=== PATIENT | female | born 1970 | race Caucasian/White ===

== ENCOUNTER 2018-09-29 08:58 | Emergency (ER) | payer OTHER, MEDICAID ==
--- NOTE | 2018-09-29 09:36 | EDPHY ---
H & P Stated Complaint: Fall yesterday Time Seen by Provider: 09/29/18 09:15 HPI/ROS: CHIEF COMPLAINT: Slip on ice, multiple complaints, see HPI HISTORY OF PRESENT ILLNESS: 47-year-old homeless female took the bus and walked to the ER complaining of slipping on ice yesterday and impacting her left thumb, left elbow, left shoulder, left hip. She is complaining of pain to these areas Did not directly impact her neck or head but is complaining of midline C-spine pain without peripheral paresthesia, weakness, numbness. This was a mechanical incident with no syncope. She was able to get herself up and spent the [facility] REVIEW OF SYSTEMS: 10 systems reviewed and negative with the exception of the elements mentioned in the history of present illness PAST MEDICAL/SURGICAL HISTORY: no anticoagulant use, no relevant medical/ surgical history SOCIAL HISTORY: Homeless. PHYSICAL EXAM 1) GENERAL: Well-developed, well-nourished, alert and oriented. Appears to be in no acute distress. Answering questions appropriately. 2) HEAD: Normocephalic, atraumatic 3) HEENT: Pupils equal, round, reactive to light bilaterally. Negative Horners. Nasopharynx, oropharynx, clear. No deformity or angulation of nose. No septal hematoma. No rhinorrhea. No oral trauma. Ears bilaterally with normal tympanic membranes. No hemotympanum. No fluid or blood in the external auditory canal. No raccoon eyes. No Dubose sign. Teeth are normally aligned with no gross malocclusion, TMJ bilaterally nontender, facial bones nontender including the zygomatic arch, maxilla mandible. 4) NECK: No cervical collar is on. Patient is unable to completely differentiate between true midline pain versus just lateral of midline pain.Cervical collar is placed at that point. 5) LUNGS: Clear to auscultation bilaterally, no wheezes, no rhonchi, no retractions. No obvious signs of trauma. No chest wall pain. No flaring, no grunting. Moving symmetrically. No crepitus. 6) HEART: [Regular rate and rhythm, 7) ABDOMEN: No guarding, no rebound, no focal tenderness, no peritoneal signs, no signs of trauma, no ecchymosis 8) MUSCULOSKELETAL: Left upper extremity: No visible signs of trauma to the entirety of the left upper extremity. Soft compartments throughout. Brisk pulses and capillary refill distally. She has reproducible pain with palpation to the left shoulder. Reproducible pain with palpation to the left elbow. Reproducible pain with palpation to the left thumb. No anatomic snuffbox pain She has full range of motion at all these areas albeit with pain. There is no signs of trauma such as ecchymosis erythema or break in skin. Left lower extremity: Tender to palpation left greater trochanteric region with no signs of trauma. No crepitus. Soft compartments. No ecchymosis. The femur, knee the,tib-fib ankle and foot are nontender. DP PT pulses present and brisk. Normal color and temperature distally. Otherwise, Moving all extremities, no focal areas of tenderness, no obvious trauma. 9) BACK: No midline vertebral tenderness, no fluctuance, no step-off, no obvious trauma, no visual or palpable abnormality. 10) SKIN: No laceration. No abrasion 11) NEURO: Awake, alert, and oriented to person, place and time. Answers questions appropriately. There were no obvious focal neurologic abnormalities. No cerebellar dysfunction. Cranial nerves 2 through to 12 intact. Normal steady gait. Upper and lower extremities bilaterally with strength 5 / 5, reflexes 2+. 12) CERVICAL SPINE NEURO EXAM: Bilateral reflexes of biceps triceps brachioradialis intact equal bilaterally Motor exam: deltoid, biceps, wrist extension, tricep, finger extension, finger flexion, finger abduction intact equal bilaterally 5/5 DIFFERENTIAL DIAGNOSIS: In no particular order including but not limited to fracture, sprain, strain, dislocation - Personal History LMP (Females 10-55): Post Menopausal Current Tetanus/Diphtheria Vaccine: Yes - Medical/Surgical History Hx Asthma: No Hx Chronic Respiratory Disease: Yes Hx Diabetes: No Hx Cardiac Disease: Yes Hx Renal Disease: No Hx Cirrhosis: No Hx Alcoholism: No Hx HIV/AIDS: No Hx Splenectomy or Spleen Trauma: No Other PMH: multiples fx neck, and compressed vertebrae. broken hip, lungs nodules - Social History Smoking Status: Heavy smoker Constitutional: Initial Vital Signs Temperature (C) 36.3 C 09/29/18 09:02 Heart Rate 125 H 09/29/18 09:02 Respiratory Rate 22 H 09/29/18 09:02 Blood Pressure 181/147 H 09/29/18 09:02 O2 Sat (%) 94 09/29/18 09:02 O2 Delivery Mode Room Air Allergies/Adverse Reactions: No Known Allergies Allergy (Unverified 09/29/18 09:07) Home Medications: Medication Instructions Recorded Celexa 09/29/18 [place] Carbonate 09/29/18 Provigil 09/29/18 traZODone 09/29/18 Medical Decision Making - Diagnostics Imaging Results: Imaging Impressions Elbow X-Ray 09/29/18 09:21 Impression: Negative left elbow radiographs. Hand X-Ray 09/29/18 09:21 Impression: Negative left hand radiographs. Hip X-Ray 09/29/18 09:21 Impression: Negative radiographs of the left hip. Shoulder X-Ray 09/29/18 09:21 Impression: Negative left shoulder radiographs. Cervical Spine CT 09/29/18 09:22 Impression: 1. No acute posttraumatic abnormality identified. If there is persistent pain or neurologic deficit, consider MRI and/or flexion and extension views if clinically indicated. 2. Unfused left mandibular fracture post fixation. 3. Mild emphysema with scattered tiny groundglass opacities. Follow up CT is recommended in 3-6 months. 4. Additional findings as above. Findings discussed with Kem Zuñiga 09/29/2018 at 9:56. Pelvis CT 09/29/18 11:20 Impression: No acute osseous findings. Findings discussed with Kem Zuñiga 09/29/2018 at 12:03. Images reviewed myself Procedures: Procedure: Splint A left Velcro thumb spica splint was applied by ER biology specimen technician. After application of the splint I returned and re-examined the patient. The splint was adequately immobilizing the joint and distal to the splint the patient's circulation and sensation were intact. Patient shows no signs of compartment syndrome. Was given orthopedic precautions. Procedure: Splint An upper extremity sling was applied by ER biology specimen technician. After application of the splint I returned and re-examined the patient. The splint was adequately immobilizing the joint and distal to the splint the patient's circulation and sensation were intact. Patient shows no signs of compartment syndrome. Was given orthopedic precautions. ED Course/Re-evaluation: Patient was re-evaluated with serial examinations. I discussed her negative C- spine CT showing no posttraumatic sequelae. Cervical collar was removed by myself is able to perform full range of motion without eliciting midline pain or peripheral paresthesia, weakness, numbness. Discussed the imaging results with staff radiologist. I reviewed her other imaging studies showing no definitive fracture to the shoulder, elbow, hand or hip. Specifically, guarding her left thumb, she has no anatomic snuffbox pain however she has been informed that ulnar collateral ligament injury has not been ruled out and therefore recommended immobilization with a thumb spica and recommend follow up with Orthopedics. I have also informed her that occult radial head fracture is not ruled out and therefore recommended immobilization with sling and follow up with Orthopedics. 12:05 p.m.: I re-evaluated the patient at this time. I discussed with the patient the staff radiologist interpretation of her CT pelvis showing no fracture, specifically no fracture in the greater trochanteric region. I reviewed the images myself. The patient is upset to hear this, informs me that she has previously been told she had a fracture of this area in 2018 and expresses her displeasure about the negative imaging studies. I discussed limitations of imaging with her. She informs me that she has been discharged from Pain Management provider's office in [place]. Patient was given a single Percocet in the ER. She would not be given any narcotics at discharge. biofuels production manager has spoke with the patient as well. Have recommended orthopedic follow- up for her shoulder, elbow, hand complaints. - Data Points Medications Given: Discontinued Medications Ibuprofen (Motrin) 800 mg PO EDNOW ONE Stop: 09/29/18 10:23 Last Admin: 09/29/18 10:27 Dose: 800 mg Oxycodone/Acetaminophen (Percocet 5/325) 1 tab PO EDNOW ONE Stop: 09/29/18 11:50 Last Admin: 09/29/18 11:52 Dose: 1 tab Departure - Departure Disposition: Home, Routine, Self-Care Clinical Impression: Left elbow pain, Left hip pain Fall from slipping on ice Qualifiers: Encounter type: initial encounter Qualified Code(s): W00.9XXA - Unspecified fall due to ice and snow, initial encounter Left thumb sprain Qualifiers: Encounter type: initial encounter Sprain of finger site: unspecified site Qualified Code(s): S63.602A - Unspecified sprain of left thumb, initial encounter Sprain of left shoulder Qualifiers: Encounter type: initial encounter Shoulder sprain type: unspecified sprain Qualified Code(s): S43.402A - Unspecified sprain of left shoulder joint, initial encounter Condition: Fair Instructions: Elbow Sprain (ED), Shoulder Sprain (ED), Finger Sprain (ED), Hip Pain (ED) Additional Instructions: Return to the ER immediately if you experience discoloration, have worsening pain, numbness, tingling, or any other symptoms that concern you. If you received x-rays in the emergency department today, be advised, that ligamentous , tendon, muscular, and other non-bony injury cannot be fully ruled out. Try to keep your affected extremity elevated above the level of your chest, and keep cold packs on the affected area, for the next 48 hours. Referrals: Tarik Patton MD [Medical Doctor] - As per Instructions [facility],. [Clinic] - As per Instructions Stand Alone Forms: Narcotic Guidelines
[2018-09-29] MEDS ORDERED: IBUPROFEN 800 MG TAB PO ONE (10:22)
[2018-09-29] MEDS ORDERED: OXYCODONE/APAP 5/325 TAB PO ONE (11:49)
[2018-09-29 12:26] VITALS: BP 118/76
== END 2018-09-29 12:25 | disposition home or self-care (01) ==
DX: S43.402A Unspecified sprain of left shoulder joint, initial encounter (principal); S63.602A Unspecified sprain of left thumb, initial encounter; M25.522 Pain in left elbow; M25.552 Pain in left hip; F17.200 Nicotine dependence, unspecified, uncomplicated; W00.0XXA Fall on same level due to ice and snow, initial encounter; Z59.0 Homelessness; Y92.9 Unspecified place or not applicable; Y99.9 Unspecified external cause status; Y93.9 Activity, unspecified
CPT/HCPCS: 72125; 72192; 73030; 73080; 73130; 73502; 99284; L0172